=== PATIENT | male | born 1980 | race Caucasian/White ===

== ENCOUNTER 2020-03-12 18:15 | Emergency (ER) | payer SELFPAY ==
[~2020-03-12] VITALS: Ht 193 cm; Wt 172.4 kg
[2020-03-12 18:26] VITALS: BP 153/104
[2020-03-12] MEDS ORDERED: HYDR28.336 TP (18:59)
--- NOTE | 2020-03-12 18:59 | ED GI ---
General Chief Complaint: General Problems/Pain Stated Complaint: PAIN DURING BOWEL MOVEMENT Nursing Triage Note: PT AMBULATE TO ROOM 04 WITH C/O PAIN WHILE DEFACATING X4 YEARS. PT STATES HE THINKS HE HAS AN ANAL FISSURE BECAUSE THAT'S WHAT HIS BROTHER HAD. PT STATES HE HAS NOT SEEN A PCP FOR THIS C/O AND HAS NEVER BEEN TREATED. PT REPORTS THAT HE HAD THOUGHT IT WAS HEMORRHOIDS BECAUSE THERE WOULD BE BLOOD ON THE TOILET PAPER AFTER WIPING. Sepsis Screen: No Definite Risk Allergies and Home Medications Allergies Coded Allergies: No Known Allergies (Verified Allergy, Unknown, 03/12/20) Past Fdgtuls-Vjintc-Hcxulu Hx Patient Social History Alcohol Use: Occasionally Uses Recreational Drug Use: No Smoking Status: Never a Smoker 2nd Hand Smoke Exposure: No Recent Foreign Travel: No Contact w/Someone Who Travel: No Recent Infectious Disease Expo: No Recent Hopitalizations: No Physical Abuse: No Sexual Abuse: No Mistreated: No Fear: No Seasonal Allergies Seasonal Allergies: No Past Medical History Surgeries: No Respiratory: No Cardiac: Yes Hypertension Neurological: No Genitourinary: No Gastrointestinal: No Musculoskeletal: No Endocrine: No HEENT: No Cancer: No Psychosocial: No Integumentary: No Blood Disorders: No Physical Exam Vital Signs Vital Signs - First Documented 03/12/20 18:26 Temp 36.4 Pulse 101 Resp 18 B/P (MAP) 153/104 (120) O2 Delivery Room Air Capillary Refill : Less Than 3 Seconds Height/Weight/BMI Height: '" Weight: lbs. oz. kg; 46.00 BMI Method: Progress/Results/Core Measures Results/Orders Vital Signs/I&O 03/12/20 18:26 Temp 36.4 Pulse 101 Resp 18 B/P (MAP) 153/104 (120) O2 Delivery Room Air Blood Pressure Mean: 120 Departure Impression Primary Impression: Perianal fissure Additional Impression: Constipation Disposition: 01 HOME, SELF-CARE Condition: Stable Departure-Patient Inst. Referrals: ELAINA RICARDO MD Patient Instructions: Anal Fissure (DC), Constipation, Adult (DC) Add. Discharge Instructions: INCREASE YOUR DAILY WATER AND FIBER INTAKE TAKE MIRALAX EVERY DAY--YOUR STOOLS SHOULD BE SOFT AND DO NOT STRAIN TO HAVE BM FOLLOW UP WITH DR. RICARDO, GENERAL SURGEON, FOR FURTHER CARE All discharge instructions reviewed with patient and/or family. Voiced understanding. Scripts Hydrocortisone (Proctocort) 28.4 Gm Cream..g. 28.4 GM TP BID, #1 TUBE Prov: DEIDRA WILLIS DO 03/12/20 DEIDRA WILLIS DO Mar 12, 2020 18:59
== END 2020-03-12 19:09 | disposition home or self-care (01) ==
LOC: EDUNIT# 18:15 → ER 18:19
DX: K60.2 Anal fissure, unspecified (principal); K59.00 Constipation, unspecified; I10 Essential (primary) hypertension
CPT/HCPCS: 99281